=== PATIENT | female | born 1950 | race Caucasian/White ===

== ENCOUNTER → 2016-10-18 | Outpatient (CLI) | payer BC, MEDICARE, OTHER ==
--- NOTE | 2016-10-18 09:28 | Diagnostic Imaging Report ---
INDICATION: Abdominal aortic aneurysm. TECHNIQUE: Evaluation of the abdominal aorta was done with grayscale and color Doppler analysis. FINDINGS: The proximal aorta measures 20 x 21 mm. The mid aorta measures 17 x 21 mm. The distal aorta measures 13 x 19 mm. The right iliac measures 10 x 10 mm. The left iliac measures 12 x 10 mm. IMPRESSION: There is no sonographic evidence for an abdominal aortic aneurysm. Dictated by: Dictated on workstation # [id number]
== END ==
LOC: RAD 07:32
PROVIDERS: ATTEND Internal Medicine
DX: I71.4 Abdominal aortic aneurysm, without rupture (principal)
CPT/HCPCS: 76775

== ENCOUNTER → 2018-05-09 | Outpatient (CLI) | payer MEDICARE ==
--- NOTE | 2018-05-09 08:21 | Diagnostic Imaging Report ---
EXAMINATION: Magnetic resonance imaging of the left knee without intravenous contrast DATE: May 09, 2018. COMPARISON: None. INDICATION: 67-year-old female, injury. Left lateral knee pain. TECHNIQUE: Multiplanar, multisequence non contrast enhanced MR imaging was accomplished. FINDINGS: MENISCI: There is an oblique tear involving the body, posterior horn, and posterior root attachment of the medial meniscus. Currently, there is very minimal 1-2 mm medial meniscal extrusion. The lateral meniscus is intact. LIGAMENTS AND TENDONS: The anterior and posterior cruciate ligaments are intact. The medial collateral ligament is intact. The iliotibial band, mid third lateral capsular ligament, fibular collateral ligament, biceps femoris tendon and conjoined tendon are intact. There is degenerative type enthesopathy at the insertion of the distal quadriceps tendon. The distal quadriceps tendon is otherwise intact. The patellar tendon is intact. JOINT: There are broad areas of approximately 75% thinning of the cartilage of the medial aspect of the lateral patellar facet with fissuring of the cartilage of the lateral patellar facet. There is very mild thinning and superficial irregularity of the cartilage of the medial patellar facet. There is mild irregularity of the cartilage of the lateral aspect of the femoral trochlea. The medial and lateral compartment cartilage is grossly intact. There is a small knee joint effusion. There is no identified intra-articular body or prominent synovitis. BONE: There is very minimal degenerative-related subchondral edema underlying the lateral patellar facet. There is an osteophyte arising from the posterior margin of the medial femoral condyle. The additional bone marrow signal is unremarkable. Specifically, negative for fracture, osteomyelitis, osteonecrosis, or marrow replacing process. BURSAE AND SOFT TISSUES: There is minimal fluid within the popliteal fossa without sizable Rapp's cyst. There is nonspecific very mild prepatellar subcutaneous edema. IMPRESSION: 1. Oblique tear involving the body, posterior horn, and posterior root attachment of the medial meniscus with very minimal 1-2 mm medial meniscal extrusion. 2. Intact lateral meniscus. 3. Intact anterior and posterior cruciate ligaments. Additional ligaments and tendons are intact. 4. Moderate patellofemoral compartment osteoarthritis. Small knee joint effusion without identified intra-articular body or prominent synovitis. 5. No acute fracture, bone contusion, or evidence of osteonecrosis. Dictated by: Dictated on workstation # [id number]
== END ==
LOC: RAD 07:06
PROVIDERS: ATTEND Orthopaedic Surgery
DX: S83.242A Other tear of medial meniscus, current injury, left knee, initial encounter (principal); S83.282A Other tear of lateral meniscus, current injury, left knee, initial encounter; M17.12 Unilateral primary osteoarthritis, left knee
CPT/HCPCS: 73721

== ENCOUNTER 2019-05-21 05:50 | Outpatient (CLI) | payer MEDICARE ==
[~2019-05-21] VITALS: Ht 157 cm; Wt 84.5 kg
[2019-05-21] MEDS ORDERED: AMLO5TAB9 PO (13:05)
[2019-05-21] MEDS ORDERED: ASPI-586 PO (13:05)
[2019-05-21] MEDS ORDERED: SIMV40TA4 PO (13:05)
[2019-05-21] MEDS ORDERED: VITA-244 PO (13:05)
[2019-05-21] MEDS ORDERED: LEVO75TA6 PO (13:05)
[2019-05-21] MEDS ORDERED: GLUC-144 PO (13:05)
[2019-05-21] MEDS ORDERED: OMG1KC PO (13:05)
[2019-05-21] MEDS ORDERED: HYDR-3923 PO (13:05)
[2019-05-21] MEDS ORDERED: TRIA1CAP PO (13:05)
== END 2019-05-21 13:12 | disposition home or self-care (01) ==
LOC: PREOP 05:50
PROVIDERS: ATTEND Surgery
DX: Z01.818 Encounter for other preprocedural examination (principal)

== ENCOUNTER 2019-10-11 07:55 | Outpatient (RCR) | payer MEDICARE ==
[~2019-10-11] VITALS: Ht 157 cm; Wt 84.5 kg
[~2019-10-11 07:55] MED LIST: AMLO5TAB9 PO; ASPI-586 PO; GLUC-144 PO; HYDR-3923 PO; LEVO75TA6 PO; OMG1KC PO; SIMV40TA25 PO; TRIA1CAP PO; TRIA1TAB3 PO; VITA-244 PO
== END 2019-10-11 14:20 | disposition home or self-care (01) ==
LOC: PREOP 07:55
PROVIDERS: ATTEND Surgery
DX: Z01.812 Encounter for preprocedural laboratory examination (principal); Z11.59 Encounter for screening for other viral diseases; Z86.010 Personal history of colon polyps
CPT/HCPCS: 87635

== ENCOUNTER 2020-04-20 10:48 | Outpatient (RCR) | payer MEDICARE ==
[~2020-04-20 10:48] MED LIST changes: +AMLO-250 PO; -AMLO5TAB9 PO
== END 2020-05-05 15:26 | disposition home or self-care (01) ==
PROVIDERS: ATTEND Nurse Practitioner Family
DX: M25.562 Pain in left knee (principal); I10 Essential (primary) hypertension; R26.9 Unspecified abnormalities of gait and mobility; Z87.891 Personal history of nicotine dependence

== ENCOUNTER → 2022-01-12 | Outpatient (CLI) | payer MEDICARE ==
--- NOTE | 2022-01-12 08:45 | Diagnostic Imaging Report ---
Right hip 834h. INDICATION: Hip pain AP and lateral views were obtained. There are no prior studies available for comparison. There is no fracture, dislocation or acute bony abnormality evident. There is mild degenerative disease of the hip joint. There is also some bony overgrowth of the greater trochanter. There is mild symmetrical sclerosis of the right sacroiliac joint. The soft tissues are unremarkable. IMPRESSION: There is no evidence for an acute bony abnormality. Dictated by: Dictated on workstation # [id number]
--- NOTE | 2022-01-12 08:46 | Diagnostic Imaging Report ---
Right femur 834 INDICATION: Leg pain AP and lateral views were obtained. There are no prior exams available for comparison. There is no fracture, dislocation or acute bony abnormality evident. There is mild degenerative disease of the hip joint and of all 3 compartments of the knee joint. The soft tissues are unremarkable. IMPRESSION: There is no evidence for an acute bony abnormality. Dictated by: Dictated on workstation # [id number]
== END ==
LOC: RAD 08:09
PROVIDERS: ATTEND Internal Medicine
DX: M25.551 Pain in right hip (principal); M79.604 Pain in right leg
CPT/HCPCS: 73502; 73552

== ENCOUNTER 2023-01-04 19:21 | Outpatient (CLI) | payer MEDICARE | END 2023-01-05 05:30 | LOC: SLEEP 19:21 | PROVIDERS: ATTEND Nurse Practitioner | DX: G47.33 Obstructive sleep apnea (adult) (pediatric) (principal); I10 Essential (primary) hypertension | CPT/HCPCS: 95810 ==